=== PATIENT | female | born 2000 | race Caucasian/White ===

== ENCOUNTER 2020-08-11 14:00 | Observation (INO) | payer OTHER ==
[~2020-08-11] VITALS: Ht 162.6 cm; Wt 86.2 kg
[2020-08-11 14:53] VITALS: BP 104/58
== END 2020-08-11 17:00 | disposition home or self-care (01) ==
LOC: 4S 14:00
PROVIDERS: ADMIT Obstetrics & Gynecology; ATTEND Obstetrics & Gynecology
DX: Z34.93 Encounter for supervision of normal pregnancy, unspecified, third trimester (principal); Z3A.35 35 weeks gestation of pregnancy
CPT/HCPCS: 59025; 76805; 96360; 96366; 99219

== ENCOUNTER 2020-08-13 15:33 | Observation (INO) | payer OTHER ==
[~2020-08-13] VITALS: Ht 162.6 cm; Wt 85.3 kg
[2020-08-13] MEDS ORDERED: PREN-217 PO (16:02)
[2020-08-13] MEDS ORDERED: LEVO50 PO (16:02)
[2020-08-13 16:24] VITALS: BP 118/66
[2020-08-13 22:28] LABS: COVID AG,FIA SOURCE NASOPHARYNGEAL
== END 2020-08-13 18:30 | disposition home or self-care (01) ==
LOC: 4S 15:33
PROVIDERS: ADMIT Obstetrics & Gynecology; ATTEND Obstetrics & Gynecology
DX: O42.913 Preterm premature rupture of membranes, unspecified as to length of time between rupture and onset of labor, third trimester (principal); Z20.828 Contact with and (suspected) exposure to other viral communicable diseases; Z3A.36 36 weeks gestation of pregnancy
CPT/HCPCS: 59025; 76805; 87426; 96360; 99219

== ENCOUNTER 2020-08-16 08:50 | Observation (INO) | payer OTHER ==
[~2020-08-16] VITALS: Ht 162.6 cm; Wt 86.6 kg
[~2020-08-16 08:50] MED LIST: LEVO50 PO; PREN-217 PO
[2020-08-16 09:49] VITALS: BP 104/71
== END 2020-08-16 09:40 | disposition home or self-care (01) ==
LOC: 4S 08:50
PROVIDERS: ADMIT Obstetrics & Gynecology; ATTEND Obstetrics & Gynecology
DX: Z34.93 Encounter for supervision of normal pregnancy, unspecified, third trimester (principal); Z3A.36 36 weeks gestation of pregnancy
CPT/HCPCS: 59025; 99219